=== PATIENT | male | born 1970 | race African-American/Black ===

== ENCOUNTER → 2022-03-28 | Outpatient (REF) | payer SELFPAY ==
[2022-03-28 19:18] VITALS: BP 129/99; PULSE 95; RESP 18; TEMP 36.1; O2SAT 99; BMI 24.7
[2022-03-28 20:51] LABS: HIV - WCH Non-Reactive (Nonreactive); Hepatitis B Surface Antibody Reactive; Hepatitis B Surface Antigen Non-Reactive (Nonreactive); Hepatitis C Antibody Non-Reactive (Nonreactive)
--- NOTE | 2022-03-28 21:11 | ED.RN ---
multiple calls to pt to return to ED for MD assessment.
--- NOTE | 2022-03-28 22:43 | EX.ED.DYSGE1 ---
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 He suffered a needlestick injury to his left hand during resuscitation. He states the area did bleed immediately. The area was thoroughly washed. He does not know of any significant diseases that the patient had and as far as he knows blood work has been obtained from the patient for further testing. [facility] Medical History Needle stick injury no medical history Allergy/AdvReac Type Severity Reaction Status Date / Time shellfish derived Allergy Swelling Verified 03/28/22 19:18 Social History Smoking Status: Never smoker ROS ROS ED Constitutional Constitutional ED: Denies chills or fever(s) Eyes Eyes: Denies discharge from eye(s) ENT ENT ED: Denies discharge from eye(s) or sore throat Cardiovascular Cardiovascular: Denies chest pain or palpitations Respiratory/Chest Respiratory/Chest: Denies cough or dyspnea Gastrointestinal Gastrointestinal: Denies abdominal pain, nausea or vomiting Musculoskeletal Musculoskeletal: Denies back pain or extremity pain Integumentary Reports other Details: Puncture wound left hand ; Denies Abrasions or rash Neurologic Neurologic: Denies headache(s) or weakness Psychiatric Psychiatric: Denies depression Allergic/Immunologic Allergic/Immunologic ED: Denies lip swelling or urticaria EXAM Physical Exam Narrative Exam Narrative: Patient evaluated in triage room. No acute distress. Const Vital Signs: 03/28/22 19:18 Temperature 96.9 F L Temperature Source Temporal Pulse Rate 95 Respiratory Rate 18 Blood Pressure 129/99 H Blood Pressure Mean 109 Pulse Ox 99 Oxygen Delivery Method Room Air Positive well nourished and well developed General Appearance ED: well developed HEENT Reports moist mucous membranes Eyes EOMs intact bilaterally Chest Wall inspection of chest normal and palpation of chest normal Resp normal respiratory effort and clear to auscultation bilaterally Cardio regular rate and regular rhythm Extremity Extremity Narrative: No visible puncture wound to the left hand at this time. Full range of motion of all digits noted. Normal sensation and cap refill. Neuro oriented x3 and no sensory deficits noted Sensorium / Orientation: alert Motor Exam: strength 5/5 throughout Skin no rashes or lesions noted Skin Narrative: No visible puncture wound at this time. MDM MDM Lab Data Labs: Laboratory Results - last 24 hr 03/28/22 19:15 Hep Bs Antigen Non-Reactive Hep Bs Antibody Reactive Hepatitis C Antibody Non-Reactive HIV 1&2 Antibody Non-Reactive Treatment and Re-Evaluation Narrative: Blood work for needlestick injury obtained per nursing protocol. Patient will follow-up with employee health. Discharge Plan Triage Chief Complaint: Occup Expose ED Provider: Roxanna Blake Dx/Rx/DC Orders Clinical Impression: Needlestick injury accident Instructions: ED NEEDLE STICK Health Care Worker Primary Care Provider: NOT,DEFINED Referrals: Health,Employee [Non-Staff -Ordering Privileges] - 3-5 Days NOT,DEFINED [Primary Care Provider] - Disposition Disposition: Home, Self Care
== END | disposition home or self-care (01) ==
LOC: EDREF 23:01
PROVIDERS: Emergency Provider Emergency Medicine; Visit Provider Emergency Medicine
DX: L76.11 Accidental puncture and laceration of skin and subcutaneous tissue during a dermatologic procedure (principal); Y92.234 Operating room of hospital as the place of occurrence of the external cause
CPT/HCPCS: 36415; 86703; 86706; 86803; 87340; 99282